=== PATIENT | female | born 1965 | race Caucasian/White ===

== ENCOUNTER → 2016-11-22 | Outpatient (CLI) | payer BC, OTHER | LOC: MRI 12:16 | DX: M47.892 Other spondylosis, cervical region (principal); M54.2 Cervicalgia ==

== ENCOUNTER → 2021-07-21 | Outpatient (CLI) | payer BC, OTHER | LOC: BC 13:06 | PROVIDERS: ATTEND Family Medicine | DX: Z12.31 Encounter for screening mammogram for malignant neoplasm of breast (principal) ==

== ENCOUNTER → 2021-08-24 | Outpatient (CLI) | payer BC, OTHER | LOC: CAT 08:02 | PROVIDERS: ATTEND Nurse Practitioner | DX: I86.2 Pelvic varices (principal); M54.6 Pain in thoracic spine ==